=== PATIENT | female | born 1965 | race Caucasian/White ===

== ENCOUNTER 2024-03-21 15:00 | Emergency (ER) | payer BC ==
[~2024-03-21] VITALS: Ht 165.1 cm; Wt 77.3 kg
[2024-03-21 15:03] VITALS: TEMP 97.7
[2024-03-21] MEDS ORDERED: NORCO 325 MG-51 TAB PO (16:19)
[2024-03-21 16:37] VITALS: BP 169/91; PULSE 78
== END 2024-03-21 16:38 | disposition home or self-care (01) ==
LOC: COL.ER 15:00
DX: S52.501A Unspecified fracture of the lower end of right radius, initial encounter for closed fracture (principal); S52.611A Displaced fracture of right ulna styloid process, initial encounter for closed fracture; X50.1XXA Overexertion from prolonged static or awkward postures, initial encounter; Y93.E9 Activity, other interior property and clothing maintenance